=== PATIENT | female | born 1970 | race Caucasian/White ===

== ENCOUNTER 2022-08-29 14:23 | Outpatient (CLI) | payer BC | END 2022-08-29 14:24 | disposition home or self-care (01) | LOC: BICMAMMO 14:23 | PROVIDERS: ATTEND Family Medicine | DX: Z12.31 Encounter for screening mammogram for malignant neoplasm of breast (principal); Z80.3 Family history of malignant neoplasm of breast | CPT/HCPCS: 77063; 77067 ==

== ENCOUNTER 2023-01-01 12:52 | Emergency (ER) | payer BC ==
[2023-01-01] MEDS ORDERED: Ketorolac Tromethamine 30 MG/ML VIAL ONE (13:30)
[2023-01-01] MEDS ORDERED: Morphine 4 MG/ML VIAL ONE (13:30)
[2023-01-01 14:06] LABS: #Basophils 0.1 thou/uL (0.0-0.2); #Eosinphils 0.1 thou/uL (0.0-0.7); #Monocytes 0.5 thou/uL (0.11-0.59); #Neutrophils 4.6 thou/uL (1.40-6.50); %Basophils 0.6 % (0.0-1.0); %Eosinophils 1.1 % (0.0-10.0); %Lymphocytes 35.5 % (21.0-51.0); %Monocytes 5.5 % (0.0-10.0); %Neutrophils 56.9 % (42.0-75.0); Hemoglobin 15.1 g/dL (12.0-16.0); Mean Corpuscular HGB CONC 32.3 g/dL (32.0-36.0); Mean Corpuscular Hemoglobin 28.4 pg (27.0-31.0); Mean Platelet Volume 9.2 fL (7.4-10.4); Platelet Count 264 10x3/uL (130-400); RBC Distribution Width 12.5 % (11.5-14.5); Red Blood Cell (RBC) Count 5.32 mill/uL (4.20-5.40); White Blood Cell (WBC) Count 8.1 10x3/uL (4.8-10.8)
[2023-01-01] MEDS ORDERED: Lorazepam 1 MG TAB ONE (14:23)
[2023-01-01 14:37] LABS: ALT (SGPT) 19 U/L (8-55); AST (SGOT) 18 U/L (5-34); Albumin 4.7 g/dL (3.5-5.0); Alkaline Phosphatase 69 U/L (40-110); Anion Gap 15 mmol/L (10-20); BUN (Urea Nitrogen) 11 mg/dL (9.8-20.1); Bilirubin, Total 0.5 mg/dL (0.2-1.2); Calc. Creatinine Clearance 0 mL/min (70-130); Calcium 9.8 mg/dL (7.8-10.44); Carbon Dioxide 24 mmol/L (22-29); Chloride 104 mmol/L (98-107); Estimated GFR 76; Globulin 3.4 g/dL (2.4-3.5); Glucose 89 mg/dL (70-105); Potassium 4.1 mmol/L (3.5-5.1); Protein, Total 8.1 g/dL (6.0-8.3); Sodium 139 mmol/L (136-145)
== END 2023-01-01 15:50 | disposition home or self-care (01) ==
LOC: ERS 12:52
DX: M54.10 Radiculopathy, site unspecified (principal); I10 Essential (primary) hypertension; F17.220 Nicotine dependence, chewing tobacco, uncomplicated; Z79.899 Other long term (current) drug therapy
CPT/HCPCS: 36415; 70450; 71045; 80053; 84484; 85025; 93005; 96372; J1885; J2270

== ENCOUNTER 2023-01-07 06:12 | Day surgery (SDC) | payer BC ==
[2023-01-06 09:35] VITALS: BMI 20.2
[2023-01-07] MEDS ORDERED: Lidocaine 1% w/Epinephrine 1:100K 20 ML VIAL ONE (06:53)
== END 2023-01-07 08:23 | disposition home or self-care (01) ==
LOC: SDC 06:12
PROVIDERS: ATTEND Internal Medicine Cardiovascular Disease
PROC: 0JH602Z Insertion of Monitoring Device into Chest Subcutaneous Tissue and Fascia, Open Approach (ICD-10-PCS; principal; 2023-01-07)
DX: R55 Syncope and collapse (principal); R07.89 Other chest pain; I10 Essential (primary) hypertension; F41.9 Anxiety disorder, unspecified; Z79.899 Other long term (current) drug therapy; Z90.710 Acquired absence of both cervix and uterus; Z88.0 Allergy status to penicillin; Z90.49 Acquired absence of other specified parts of digestive tract; Z88.6 Allergy status to analgesic agent

== ENCOUNTER 2023-02-20 07:10 | Outpatient (CLI) | payer BC | END 2023-02-20 07:11 | disposition home or self-care (01) | LOC: BICMRI 07:10 | PROVIDERS: ATTEND Neurological Surgery | DX: R29.90 Unspecified symptoms and signs involving the nervous system (principal); M47.22 Other spondylosis with radiculopathy, cervical region; R90.82 White matter disease, unspecified | CPT/HCPCS: 70551; 72050 ==

== ENCOUNTER 2023-05-04 14:24 | Outpatient (CLI) | payer BC ==
[2023-05-04 15:42] LABS: Hematocrit 41.7 % (34.9-44.5); INR-International Normal Ratio 0.9; Mean Corpuscular HGB CONC 33.6 g/dL (32.0-36.0); Mean Corpuscular Hemoglobin 29.4 pg (27.0-33.0); Mean Corpuscular Volume 87.6 fl (81.6-98.3); Mean Platelet Volume 9.6 fl (7.4-10.4); PTT 27.4 sec (22.0-33.0); Platelet Count 273 10x3/uL (150-450); Prothrombin Time 9.8 sec (9.5-12.1); RBC Distribution Width 12.7 % (11.5-14.5); Red Blood Cell (RBC) Count 4.76 10x6/uL (3.90-5.03); White Blood Cell (WBC) Count 7.6 10x3/uL (3.5-10.5)
[2023-05-04 16:04] LABS: Anion Gap 14 mmol/L (10-20); BUN (Urea Nitrogen) 12 mg/dL (9.8-20.1); Calc. Creatinine Clearance 0 mL/min (70-130); Calcium 9.3 mg/dL (7.8-10.44); Carbon Dioxide 21 mmol/L (22-29); Chloride 104 mmol/L (98-107); Estimated GFR 77; Glucose 97 mg/dL (70-105); Potassium 4.3 mmol/L (3.5-5.1); Sodium 135 mmol/L (136-145)
== END 2023-05-04 14:25 | disposition home or self-care (01) ==
LOC: LABBT 14:24
PROVIDERS: ATTEND Neurological Surgery
DX: Z01.812 Encounter for preprocedural laboratory examination (principal); M50.222 Other cervical disc displacement at C5-C6 level; M50.223 Other cervical disc displacement at C6-C7 level
CPT/HCPCS: 80048; 85027; 85610; 85730

== ENCOUNTER 2023-05-07 10:17 | Observation (INO) | payer BC ==
[2023-05-04 15:18] VITALS: BMI 23.1
[2023-05-07] MEDS ORDERED: Vancomycin 1 GM VIAL ONE (10:59)
[2023-05-07] MEDS ORDERED: Thrombin 5000 UNITS/5 ML VIAL ONE (10:59)
[2023-05-07] MEDS ORDERED: Acetaminophen 500 MG TAB ONE (11:43)
[2023-05-07] MEDS ORDERED: LevoFLOXacin D5W 500 mg (100 mL) BAG ONE (11:43)
[2023-05-07] MEDS ORDERED: Clindamycin/D5W 900 mg/50 ml Premix Bag ONE (12:05)
[2023-05-07] MEDS ORDERED: HYDROmorphone 0.5 MG/0.5 ML SYRINGE ONE (12:25)
[2023-05-07] MEDS ORDERED: fentaNYL PF 100 MCG/2 ML SYRINGE ONE ×2 (12:25→15:33)
[2023-05-07] MEDS ORDERED: Ondansetron PF 4 MG/2 ML Vial ONE ×2 (12:32→16:10)
[2023-05-07] MEDS ORDERED: Rocuronium Bromide 10 MG/ML (10ML VIAL) ONE (12:32)
[2023-05-07] MEDS ORDERED: Lidocaine 1% PF 5 ML VIAL ONE (12:32)
[2023-05-07] MEDS ORDERED: Dexamethasone 20 MG/5 ML VIAL ONE (12:32)
[2023-05-07] MEDS ORDERED: NEOSTIGMINE 3 MG/3 ML SYR 3 MG/3 ML SYRINGE ONE (12:32)
[2023-05-07] MEDS ORDERED: PROPOFOL 200 MG/20 ML VIAL ONE (12:32)
[2023-05-07] MEDS ORDERED: PHENYLEPHRINE-NS 100 MCG/ML 10 ML SYRINGE ONE (12:32)
[2023-05-07] MEDS ORDERED: Glycopyrrolate 0.2 MG/ML 5 ML SYRINGE ONE (12:32)
[2023-05-07] MEDS ORDERED: fentaNYL 50 mcg/mL 1 mL Vial ONE (16:56)
[2023-05-07] MEDS ORDERED: Ondansetron PF 4 MG/2 ML Vial IVP PRN (17:22)
[2023-05-07] MEDS ORDERED: HYDROcodone/Acetaminophen 10/325 mg Tablet PO PRN (17:22)
[2023-05-07] MEDS ORDERED: HYDROcodone/Acetaminophen 7.5/325 mg Tablet PO PRN (17:22)
[2023-05-07] MEDS ORDERED: Prochlorperazine 10 MG/2 ML VIAL IM PRN (17:22)
[2023-05-07] MEDS ORDERED: Acetaminophen 325 MG TAB PO PRN (17:22)
[2023-05-07] MEDS ORDERED: Morphine 2 MG/ML VIAL SLOW IVP PRN (17:22)
[2023-05-07] MEDS ORDERED: tiZANidine HCl 4 MG TAB PO PRN (17:23)
[2023-05-07] MEDS ORDERED: Clindamycin/D5W 900 MG in Premix 1 BAG IVPB SCH (17:30)
[2023-05-07] MEDS ORDERED: Clindamycin/D5W 600 MG in Premix 1 BAG IVPB SCH (18:00)
[2023-05-07] MEDS: Sodium Chloride 0.9% 1,000 ML IV SCH (20:30)
[2023-05-07] MEDS: Clindamycin/D5W 600 MG in Premix 1 BAG IVPB SCH (20:46)
[2023-05-08] MEDS: Clindamycin/D5W 600 MG in Premix 1 BAG IVPB SCH (04:21)
[2023-05-08] MEDS: Sodium Chloride 0.9% 1,000 ML IV SCH (04:23)
[2023-05-08 08:23] VITALS: BP 111/74; TEMP 98.4
== END 2023-05-08 11:44 | disposition home or self-care (01) ==
LOC: SDC 10:17 → SJJU 17:24
PROVIDERS: ADMIT Neurological Surgery; ATTEND Neurological Surgery
PROC: 0RG10K1 Fusion of Cervical Vertebral Joint with Nonautologous Tissue Substitute, Posterior Approach, Posterior Column, Open Approach (ICD-10-PCS; principal; 2023-05-08)
DX: M50.021 Cervical disc disorder at C4-C5 level with myelopathy (principal); M50.121 Cervical disc disorder at C4-C5 level with radiculopathy; M50.022 Cervical disc disorder at C5-C6 level with myelopathy; M50.122 Cervical disc disorder at C5-C6 level with radiculopathy; Z90.710 Acquired absence of both cervix and uterus; Z90.89 Acquired absence of other organs; Z98.890 Other specified postprocedural states; Z79.899 Other long term (current) drug therapy; Z88.0 Allergy status to penicillin; Z88.5 Allergy status to narcotic agent
CPT/HCPCS: C1713; J1100; J1170; J1956; J2405; J2704; J3010; J3370; J3490; J7050

== ENCOUNTER 2025-01-27 08:44 | Outpatient (CLI) | payer BC, OTHER | END 2025-01-27 08:45 | disposition home or self-care (01) | LOC: SCSRAD 08:44 | PROVIDERS: ATTEND Family Medicine | DX: M25.551 Pain in right hip (principal) ==

== ENCOUNTER 2025-02-09 13:26 | Outpatient (CLI) | payer OTHER | END 2025-02-09 13:27 | disposition home or self-care (01) | LOC: BICMAMMO 13:26 | PROVIDERS: ATTEND Family Medicine | DX: Z12.31 Encounter for screening mammogram for malignant neoplasm of breast (principal); Z80.3 Family history of malignant neoplasm of breast | CPT/HCPCS: 77063; 77067 ==